=== PATIENT | female | born 1955 ===

== ENCOUNTER 2022-09-17 08:45 | Inpatient (IN) | payer OTHER ==
[~2022-09-17] VITALS: Ht 162.6 cm; Wt 68.5 kg
[2022-09-17] MEDS ORDERED: COZAAR100 MG PO (11:17)
[2022-09-17] MEDS ORDERED: LANOXIN62.5 MCG PO (11:18)
[2022-09-17] MEDS ORDERED: NORVASC5 MG PO (11:18)
[2022-09-22] MEDS ORDERED: DIGOXIN125 MCG (08:21)
[2022-09-22] MEDS ORDERED: DIGOXIN250 MCG (08:22)
== END 2022-09-27 11:28 | disposition home or self-care (01) | DRG 740 ==
LOC: O/R 09-22 05:21 → OB/GYN 09-22 05:21
PROVIDERS: ADMIT Obstetrics & Gynecology; ATTEND Obstetrics & Gynecology
PROC: 0UT70ZZ Resection of Bilateral Fallopian Tubes, Open Approach (ICD-10-PCS; 2022-09-22)
PROC: 0UT20ZZ Resection of Bilateral Ovaries, Open Approach (ICD-10-PCS; 2022-09-22)
PROC: 0DNW0ZZ Release Peritoneum, Open Approach (ICD-10-PCS; 2022-09-22)
PROC: 0TNB0ZZ Release Bladder, Open Approach (ICD-10-PCS; 2022-09-22)
PROC: 0UT90ZZ Resection of Uterus, Open Approach (ICD-10-PCS; principal; 2022-09-22 07:00)
DX: C54.1 Malignant neoplasm of endometrium (principal); N99.71 Accidental puncture and laceration of a genitourinary system organ or structure during a genitourinary system procedure; D25.1 Intramural leiomyoma of uterus; D25.2 Subserosal leiomyoma of uterus; D25.0 Submucous leiomyoma of uterus; N84.0 Polyp of corpus uteri; Z20.822 Contact with and (suspected) exposure to COVID-19; N73.6 Female pelvic peritoneal adhesions (postinfective)

== ENCOUNTER 2023-07-27 05:35 | Inpatient (IN) | payer OTHER ==
[2023-07-20 09:50] LABS: PH,URINE 5.5 (5.0-8.0); URINE APPEARANCE Cloudy; URINE BILIRRUBIN Moderate (NEGATIVE); URINE BLOOD Negative; URINE COLOR Dark Yellow; URINE GLUCOSE Negative (NEGATIVE); URINE LEUKOCYTE Trace; URINE NITRATE Negative
[2023-07-20 09:51] LABS: URINE BACTERIA 42.8 uL (0.0-1933); URINE EPITHELIAL CELLS 19.9 uL (0.0-38.8); URINE RBC 56.6 uL (0.0-20.8); URINE WBC 14.2 uL (0.0-23.2)
[2023-07-20 09:55] LABS: HEMATOCRIT 36.1 % (36.0-45.00); HEMOGLOBIN 12.3 g/dL (12.0-15.00); MEAN CELL VOLUME 81.3 fL (80.00-100.00); MEAN CORPUSCULAR HEMOGLOBIN 27.7 pg (27.00-32.0); MEAN CORPUSCULAR HGB CONC 34.1 g/dl (32.0-36.0); PLATELET COUNT 440 K/uL (150-450); RED BLOOD COUNT 4.44 M/uL (4.00-6.00); RED CELL DISTRIBUTION WIDTH 14.8 % (11.5-14.5)
[2023-07-20 10:00] LABS: URINE PROTEIN 100 (NEGATIVE)
[2023-07-20 10:02] LABS: URINE CRYSTALS MANY /HPF
[2023-07-20 10:04] LABS: URINE EPITHELIAL CELLS 0-4 /HPF
[2023-07-20 10:19] LABS: INR 1.03; PARTIAL THROMBOPLASTIN TIME 28.4 SECONDS (22.0-34.0); PROTHROMBIN TIME 10.8 SECONDS (9.0-11.5)
[2023-07-20 10:26] LABS: ALBUMIN 3.5 gm/dL (3.4-5.0); BILIRUBIN TOTAL 0.69 mg/dL (0.3-1.2); CALCIUM 10.1 mg/dL (8.5-10.1); CREATININE SERUM 0.75 mg/dL (0.55-1.02); GFR 77.08; GLOBULINA 4.4 G/DL (2.4-3.5); POTASSIUM 4.29 mEq/L (3.5-5.1); TOTAL PROTEIN 7.9 gm/dL (6.4-8.2)
[~2023-07-27] VITALS: Ht 162.6 cm; Wt 63.5 kg
[~2023-07-27 05:35] MED LIST: COZAAR100 MG PO; DIGOXIN125 MCG; DIGOXIN250 MCG; LANOXIN62.5 MCG PO; NORVASC5 MG PO
[2023-07-27] MEDS ORDERED: POVIDONE-IODINE 118 ML BOTT TOP ONE (07:12)
[2023-07-27] MEDS ORDERED: CEFAZOLIN SODIUM 1,000 MG VIAL ONE (07:16)
[2023-07-27] MEDS ORDERED: HEMOSTATIC MATRIX 1 KIT KIT TOP ONE (08:09)
[2023-07-27] MEDS ORDERED: HEMOSTATIC MATRIX 1 KIT KIT TOP SCH (08:15)
[2023-07-27] MEDS ORDERED: CEFAZOLIN SODIUM 1,000 MG VIAL IV SCH ×2 (08:15→17:00)
[2023-07-27] MEDS ORDERED: POVIDONE-IODINE 118 ML BOTT TOP SCH (08:15)
[2023-07-27] MEDS ORDERED: SUGAMMADEX SODIUM 200 MG/2 ML VIAL IV ONE (08:25)
[2023-07-27] MEDS ORDERED: KETOROLAC TROMETHAMINE 10 MG TABLET PO PRN ×2 (13:00→15:00)
[2023-07-27] MEDS ORDERED: RINGERS SOLUTION,LACTATED 1,000 ML IV SCH (13:15)
[2023-07-28] MEDS ORDERED: SUGAMMADEX SODIUM 200 MG/2 ML VIAL IV SCH (13:00)
[2023-07-28] MEDS ORDERED: SUGAMMADEX SODIUM 200 MG/2 ML VIAL IV ONE (14:45)
== END 2023-07-28 14:47 | disposition home or self-care (01) | DRG 745 ==
LOC: CIR.AMB 05:35 → OB/GYN 11:01 → O/R 11:01 → OB/GYN 11:05
PROVIDERS: ADMIT Obstetrics & Gynecology; ATTEND Obstetrics & Gynecology
PROC: 0UBC7ZX Excision of Cervix, Via Natural or Artificial Opening, Diagnostic (ICD-10-PCS; principal; 2023-07-27 07:00)
DX: C53.0 Malignant neoplasm of endocervix (principal); Z20.822 Contact with and (suspected) exposure to COVID-19

== ENCOUNTER 2023-08-01 15:23 | Inpatient (IN) | payer OTHER ==
[~2023-08-01] VITALS: Ht 162.6 cm; Wt 63.5 kg
[2023-08-01 16:08] LABS: PH,URINE 5.5 (5.0-8.0); URINE APPEARANCE Cloudy; URINE BILIRRUBIN Negative (NEGATIVE); URINE BLOOD Negative; URINE COLOR Yellow; URINE GLUCOSE Negative (NEGATIVE); URINE LEUKOCYTE Small; URINE NITRATE Negative; URINE PROTEIN 30 (NEGATIVE)
[2023-08-01 16:08] LABS: HEMATOCRIT 32.9 % (36.0-45.00); HEMOGLOBIN 11.1 g/dL (12.0-15.00); MEAN CELL VOLUME 78.8 fL (80.00-100.00); MEAN CORPUSCULAR HEMOGLOBIN 26.5 pg (27.00-32.0); MEAN CORPUSCULAR HGB CONC 33.6 g/dl (32.0-36.0); PLATELET COUNT 436 K/uL (150-450); RED BLOOD COUNT 4.18 M/uL (4.00-6.00); RED CELL DISTRIBUTION WIDTH 15.1 % (11.5-14.5)
[2023-08-01 16:09] LABS: URINE BACTERIA 185.1 uL (0.0-1933); URINE EPITHELIAL CELLS 17.6 uL (0.0-38.8); URINE RBC 20.5 uL (0.0-20.8); URINE WBC 39.5 uL (0.0-23.2)
[2023-08-01 16:33] LABS: ALBUMIN 3.2 gm/dL (3.4-5.0); BILIRUBIN TOTAL 0.45 mg/dL (0.3-1.2); CALCIUM 9.6 mg/dL (8.5-10.1); CREATININE SERUM 1.23 mg/dL (0.55-1.02); GFR 43.55; GLOBULINA 4.4 G/DL (2.4-3.5); POTASSIUM 4.16 mEq/L (3.5-5.1); TOTAL PROTEIN 7.6 gm/dL (6.4-8.2)
[2023-08-01] MEDS ORDERED: HYOSCYAMINE SULFATE 0.125 MG TAB.SUBL SL PRN (16:45)
[2023-08-01] MEDS ORDERED: ACETAMINOPHEN 500 MG GEL..CAP PO PRN (16:45)
[2023-08-01] MEDS ORDERED: ONDANSETRON HCL 2 MG/ML VIAL IV PRN (16:45)
[2023-08-01] MEDS ORDERED: MORPHINE SULFATE 4 MG/ML CARTRIDGE IV PRN (16:45)
[2023-08-01] MEDS ORDERED: RINGERS SOLUTION,LACTATED 1,000 ML IV SCH (16:45)
[2023-08-01] MEDS ORDERED: FUROsemide 20 MG/2 ML VIAL IV SCH (16:45)
[2023-08-01 16:49] LABS: INR 1.04; PARTIAL THROMBOPLASTIN TIME 28.7 SECONDS (22.0-34.0); PROTHROMBIN TIME 10.9 SECONDS (9.0-11.5)
[2023-08-02] MEDS ORDERED: SPIRONOLACTONE 50 MG TABLET PO SCH (18:55)
[2023-08-02 20:43] LABS: BILI PERITONEAL FLUID 1.86 mg/dl; TP PERITONEAL FLUID 5.4 g/dl
[2023-08-03] MEDS ORDERED: SPIRONOLACTONE50 MG PO (17:47)
[2023-08-03] MEDS ORDERED: PROTEINEX-18 LI30 ML PO (17:48)
== END 2023-08-03 18:07 | disposition home or self-care (01) | DRG 375 ==
LOC: MEDI 15:23
PROVIDERS: Radiology Vascular & Interventional Radiology; ADMIT Internal Medicine Hematology & Oncology; ATTEND Internal Medicine Hematology & Oncology
PROC: 0W9G3ZZ Drainage of Peritoneal Cavity, Percutaneous Approach (ICD-10-PCS; principal; 2023-08-02)
DX: C78.6 Secondary malignant neoplasm of retroperitoneum and peritoneum (principal); J91.0 Malignant pleural effusion; R18.0 Malignant ascites; C54.1 Malignant neoplasm of endometrium; I10 Essential (primary) hypertension
CPT/HCPCS: 240